=== PATIENT | male | born 1950 | race Caucasian/White ===

== ENCOUNTER 2025-06-09 14:56 | Inpatient (IN) | payer MEDICARE, OTHER ==
[~2025-06-09] VITALS: Ht 170.2 cm; Wt 75.3 kg
[2025-06-09] MEDS ORDERED: NA P133E RC (15:13)
[2025-06-09] MEDS ORDERED: DIVA250T4 PO (15:13)
[2025-06-09] MEDS ORDERED: BISA10SU61 RC (15:13)
[2025-06-09] MEDS ORDERED: MSM PO (15:13)
[2025-06-09] MEDS ORDERED: POLY17PO4 PO (15:13)
[2025-06-09] MEDS ORDERED: POLY15DR31 EACHEYE (15:13)
[2025-06-09] MEDS ORDERED: MAGN400O6 PO (15:13)
[2025-06-09] MEDS ORDERED: LISI2.5T14 PO (15:13)
[2025-06-09] MEDS ORDERED: ACET-2605 PO (15:13)
[2025-06-09] MEDS ORDERED: BUDE10.2 IH (15:13)
[2025-06-09] MEDS ORDERED: DONE5TAB7 PO (15:13)
[2025-06-09 16:16] LABS: *BILIRUBIN,URIN NEGATIVE (NEGATIVE); *BLOOD, URINE NEGATIVE (NEGATIVE); *CLARITY,URINE CLEAR (CLEAR); *COLOR,URINE YELLOW (YELLOW); *KETONES,URINE NEGATIVE (NEGATIVE); *PROTEIN,URINE NEGATIVE (NEGATIVE); *UROBILINOGEN,URINE 0.2 E.U./dl (NORMAL); LEUKOCYTE ESTERASE ,URINE NEGATIVE (NEGATIVE); NITRITE, URINE NEGATIVE (NEGATIVE); UGLUCOSE NEGATIVE (NEGATIVE)
[2025-06-09 16:18] LABS: PLATELET COUNT (AUTO) 227 K/uL (152-348); RED BLOOD CELL COUNT(AUTO) 4.69 MIL/uL (4.06-5.63); RED CELL DISTRIBUTION WIDTH 13.2 % (12.1-16.2); WHITE BLOOD COUNT (AUTO) 7.0 K/uL (3.6-10.2)
[2025-06-09 16:28] LABS: *AMPHETAMINE, URINE NEGATIVE (NEGATIVE); *BARBITURATE, URINE NEGATIVE (NEGATIVE); *BENZODIAZEPINE, URINE NEGATIVE (NEGATIVE); *CANNABINOID, URINE NEGATIVE (NEGATIVE); *COCCAINE, URINE NEGATIVE (NEGATIVE); *OPIATE, URINE NEGATIVE (NEGATIVE); *PHENCYCLIDINE SCREEN,URINE NEGATIVE (NEGATIVE); FENTANYL, URINE NEGATIVE (NEGATIVE)
[2025-06-09 16:28] LABS: CREATININE 0.9 mg/dL (0.6-1.3); SODIUM SERUM 123 mmol/L (136-145); UREA NITROGEN, BLOOD 16 mg/dL (7-18)
[2025-06-09 16:34] LABS: ETHANOL < 3 MG/DL (0-10); TOTAL PROTEIN, SERUM 7.3 g/dL (6.4-8.2)
[2025-06-09 17:18] LABS: ASPARTATE AMINOTRANSFERASE 30 U/L (15-37)
[2025-06-09] MEDS ORDERED: POTASSIUM BICARBONATE/CIT AC 25 MEQ TABLET.EFF ONE (17:20)
[2025-06-09] MEDS: POTASSIUM BICARBONATE/CIT AC 25 MEQ TABLET.EFF PO ONE (17:22)
[2025-06-09] MEDS: IV NS 1000 ML 1,000 ML IV ONE (17:33)
[2025-06-09 18:35] VITALS: BP 149/80
[2025-06-09] MEDS ORDERED: ONDANSETRON 4 MG/2 ML VIAL IV PRN (19:30)
[2025-06-09] MEDS ORDERED: ACETAMINOPHEN 325 MG TABLET PO PRN (19:30)
[2025-06-09] MEDS ORDERED: MORPHINE SULFATE 2 MG/1 ML DISP.SYRIN IVP PRN (19:30)
[2025-06-09] MEDS ORDERED: MAGNESIUM HYDROXIDE 30 ML LIQUID UDC PO PRN (19:30)
[2025-06-09 19:50] LABS: CREATININE 0.7 mg/dL (0.6-1.3); SODIUM SERUM 141 mmol/L (136-145); UREA NITROGEN, BLOOD 15 mg/dL (7-18)
[2025-06-09] MEDS: DONEPEZIL 5 MG TABLET PO SCH (21:15)
[2025-06-09] MEDS: IV NS 1000 ML 1,000 ML IV SCH (21:22)
[2025-06-09 23:51] VITALS: BP 139/85; TEMP 97.4; O2SAT 97
[2025-06-10 06:00] VITALS: BP 135/80; TEMP 98; O2SAT 98
[2025-06-10 06:43] LABS: PLATELET COUNT (AUTO) 196 K/uL (152-348); RED BLOOD CELL COUNT(AUTO) 4.25 MIL/uL (4.06-5.63); RED CELL DISTRIBUTION WIDTH 12.9 % (12.1-16.2); WHITE BLOOD COUNT (AUTO) 6.8 K/uL (3.6-10.2)
[2025-06-10 08:08] LABS: ASPARTATE AMINOTRANSFERASE 26 U/L (15-37); CREATININE 0.9 mg/dL (0.6-1.3); SODIUM SERUM 140 mmol/L (136-145); TOTAL PROTEIN, SERUM 6.0 g/dL (6.4-8.2); UREA NITROGEN, BLOOD 17 mg/dL (7-18)
[2025-06-10] MEDS: DIVALPROEX 250 MG TABLET.DR PO SCH (08:15)
[2025-06-10] MEDS: LISINOPRIL 5 MG TABLET PO SCH (08:15)
[2025-06-10] MEDS: DOCUSATE SODIUM 100 MG CAPSULE PO SCH (08:15)
[2025-06-10] MEDS: HEPARIN SODIUM,PORCINE 5,000 UNITS/ML VIAL SQ SCH (08:16)
[2025-06-10] MEDS: BUDESONIDE INH SCH (09:45)
[2025-06-10] MEDS ORDERED: POLYVINYL ALCOHOL OPHT DROPS 15 ML BOTTLE EACHEYE PRN (09:45)
[2025-06-10] MEDS: [UNRECOGNIZED DRUG - OTHER] INH SCH (09:45)
[2025-06-10] MEDS: FORMOTEROL INH SCH (09:45)
[2025-06-10 12:00] VITALS: BP 142/78; TEMP 98; O2SAT 97
[2025-06-10 16:00] VITALS: BP 127/74; TEMP 98.5; O2SAT 97
[2025-06-10 19:00] VITALS: BP 104/68; TEMP 97.6; O2SAT 96
[2025-06-10] MEDS: QUETIAPINE FUMARATE 25 MG TABLET PO SCH (21:54)
[2025-06-11 06:00] VITALS: BP 130/74; TEMP 97.7; O2SAT 97
[2025-06-11 07:35] LABS: CREATININE 0.9 mg/dL (0.6-1.3); SODIUM SERUM 143 mmol/L (136-145); UREA NITROGEN, BLOOD 15 mg/dL (7-18)
[2025-06-11 11:52] VITALS: BP 130/97; TEMP 97.7; O2SAT 96
[2025-06-11 15:58] VITALS: BP 129/69; TEMP 98.5; O2SAT 95
[2025-06-11] MEDS ORDERED: LORAZEPAM 1 MG TABLET PO PRN (16:00)
== END 2025-06-11 21:10 | DRG 641 ==
LOC: ER 14:56 → MEDSURG3 20:02
PROVIDERS: ADMIT Internal Medicine; ATTEND Student in an Organized Health Care Education/Training Program
DX: E87.1 Hypo-osmolality and hyponatremia (principal); F03.92 Unspecified dementia, unspecified severity, with psychotic disturbance; E44.1 Mild protein-calorie malnutrition; F03.93 Unspecified dementia, unspecified severity, with mood disturbance; E83.41 Hypermagnesemia; E87.6 Hypokalemia; J44.9 Chronic obstructive pulmonary disease, unspecified; I10 Essential (primary) hypertension; Z79.51 Long term (current) use of inhaled steroids; Z66 Do not resuscitate
CPT/HCPCS: 36415; 83735; 84100; 85025; A4606; A4663; G0378; G0480; J1644; J3490; J7040

== ENCOUNTER 2025-06-11 21:18 | Inpatient (IN) | payer MEDICARE, OTHER ==
[~2025-06-11] VITALS: Ht 182.9 cm; Wt 70.3 kg
[~2025-06-11 21:18] MED LIST: ACET-2605 PO; BISA10SU61 RC; BUDE10.2 IH; DIVA250T4 PO; DONE5TAB7 PO; LISI2.5T14 PO; MAGN400O6 PO; MSM PO; NA P133E RC; POLY15DR31 EACHEYE; POLY17PO4 PO
[2025-06-11 21:55] VITALS: BP 128/56; TEMP 97.5; O2SAT 95
[2025-06-11] MEDS ORDERED: LORAZEPAM 1 MG TABLET PO PRN ×2 (22:30)
[2025-06-11] MEDS ORDERED: ACETAMINOPHEN 325 MG TABLET PO PRN (22:30)
[2025-06-11] MEDS ORDERED: MAG HYDROX/AL HYDROX/SIMETH 30 ML LIQUID UDC PO PRN (22:30)
[2025-06-11] MEDS ORDERED: MAGNESIUM HYDROXIDE 30 ML LIQUID UDC PO PRN (22:30)
[2025-06-11] MEDS ORDERED: TEMAZEPAM 7.5 MG CAPSULE PO PRN ×2 (22:30)
[2025-06-11] MEDS: BLOOD SUGAR DIAGNOSTIC 1 EACH STRIP VI ONE (23:03)
[2025-06-11] MEDS ORDERED: POLYVINYL ALCOHOL OPHT DROPS 15 ML BOTTLE EACHEYE PRN (23:30)
[2025-06-12 08:00] VITALS: BP 128/83; TEMP 97.5; O2SAT 98
[2025-06-12 08:01] LABS: ASPARTATE AMINOTRANSFERASE 30 U/L (15-37); CREATININE 0.8 mg/dL (0.6-1.3); SODIUM SERUM 141 mmol/L (136-145); TOTAL PROTEIN, SERUM 6.5 g/dL (6.4-8.2); UREA NITROGEN, BLOOD 28 mg/dL (7-18)
[2025-06-12] MEDS: LISINOPRIL 5 MG TABLET PO SCH (09:00)
[2025-06-12] MEDS: DOCUSATE SODIUM 100 MG CAPSULE PO SCH (09:41)
[2025-06-12] MEDS ORDERED: TEMAZEPAM 15 MG CAPSULE PO PRN (12:00)
[2025-06-12] MEDS: ENSURE ENLIVE (VAN) 240 ML LIQUID PO SCH (12:43)
[2025-06-12 15:52] VITALS: BP 111/66; TEMP 98; O2SAT 98
[2025-06-12] MEDS: DIVALPROEX 250 MG TABLET.DR PO SCH (16:55)
[2025-06-12 20:00] VITALS: BP 108/50; TEMP 98.3; O2SAT 98
[2025-06-12] MEDS: DONEPEZIL 5 MG TABLET PO SCH (20:47)
[2025-06-12] MEDS: QUETIAPINE FUMARATE 25 MG TABLET PO SCH (20:47)
[2025-06-13 07:55] VITALS: BP 140/93; TEMP 98; O2SAT 99
[2025-06-13 16:03] VITALS: BP 122/71; TEMP 98; O2SAT 100
[2025-06-13 20:00] VITALS: BP 135/69; TEMP 98.1; O2SAT 99
[2025-06-14 08:19] VITALS: BP 148/84; TEMP 98; O2SAT 96
[2025-06-14 15:39] VITALS: BP 113/67; TEMP 98; O2SAT 99
[2025-06-14 20:00] VITALS: BP 107/69; TEMP 97.9; O2SAT 100
[2025-06-15 08:30] VITALS: BP 131/79; TEMP 98; O2SAT 99
[2025-06-15 16:58] VITALS: BP 140/91; TEMP 98; O2SAT 99
[2025-06-15 20:00] VITALS: BP 110/58; TEMP 98.4; O2SAT 98
[2025-06-16 08:30] VITALS: BP 163/85; TEMP 98; O2SAT 99
[2025-06-16 16:58] VITALS: BP 132/94; TEMP 98; O2SAT 99
[2025-06-16 20:00] VITALS: BP 126/80; TEMP 98; O2SAT 96
[2025-06-16] MEDS ORDERED: DIVALPROEX 250 MG TABLET.DR PO SCH (21:00)
[2025-06-17 08:32] VITALS: BP 137/62; TEMP 98; O2SAT 99
[2025-06-17] MEDS: DIVALPROEX 500 MG TABLET.DR PO SCH (08:38)
[2025-06-17] MEDS ORDERED: DIVALPROEX 250 MG TABLET.DR PO SCH (09:00)
[2025-06-17] MEDS ORDERED: ONDANSETRON HCL 4 MG TABLET PO PRN (13:30)
[2025-06-17 16:45] VITALS: BP 131/83; TEMP 98; O2SAT 99
[2025-06-17 20:00] VITALS: BP 130/80; TEMP 98.1; O2SAT 100
[2025-06-18 07:43] VITALS: BP 137/76; TEMP 97.4; O2SAT 98
[2025-06-18 16:00] VITALS: BP 130/73; TEMP 97.6; O2SAT 95
[2025-06-18 20:00] VITALS: BP 126/67; TEMP 97.7; O2SAT 100
[2025-06-19 08:25] VITALS: BP 109/67; TEMP 98.2; O2SAT 98
[2025-06-19 15:54] VITALS: BP 125/57; TEMP 98; O2SAT 100
[2025-06-19 20:11] VITALS: BP 122/52; TEMP 97.9; O2SAT 98
[2025-06-20 08:15] VITALS: BP 141/81
== END 2025-06-20 14:30 | DRG 885 ==
LOC: GPS 21:18
PROVIDERS: ADMIT Psychiatry & Neurology Psychiatry; ATTEND Student in an Organized Health Care Education/Training Program
DX: F29 Unspecified psychosis not due to a substance or known physiological condition (principal); E44.1 Mild protein-calorie malnutrition; F03.92 Unspecified dementia, unspecified severity, with psychotic disturbance; F03.93 Unspecified dementia, unspecified severity, with mood disturbance; Z91.148 Patient's other noncompliance with medication regimen for other reason; J44.9 Chronic obstructive pulmonary disease, unspecified; E86.0 Dehydration; R79.89 Other specified abnormal findings of blood chemistry; I10 Essential (primary) hypertension; Z68.21 Body mass index [BMI] 21.0-21.9, adult; E83.41 Hypermagnesemia
CPT/HCPCS: 36415; 80164; J3490